=== PATIENT | male | born 1995 | race Caucasian/White ===

== ENCOUNTER → 2018-03-05 | Emergency (ER) | payer OTHER ==
[~2018-03-05] VITALS: Ht 172.7 cm; Wt 72.6 kg
[~2018-03-05] MED LIST: KETO10TA2 PO
== END | disposition home or self-care (01) ==
LOC: ER 00:05 → EDBD 00:06 → ER 00:06
DX: R10.32 Left lower quadrant pain (principal)

== ENCOUNTER 2021-04-02 15:49 | Inpatient (IN) | payer OTHER ==
[~2021-04-02] VITALS: Ht 175.3 cm; Wt 72.6 kg
--- NOTE | 2021-04-02 16:08 | NUR ---
PACIENTE ALERTA Y ORIENTADO POR ALEXANDRA. REFIERE DOLOR ABDOMINAL DESDE LAS 8:30AM QUE AHORA SE REFLEJA MAYORMENTE EN EL LADO DERECHO.
== END 2021-04-04 13:06 | disposition home or self-care (01) | DRG 343 ==
LOC: ER 15:49 → SEC-K 22:38 → SURH 22:38
PROVIDERS: ADMIT Surgery; ATTEND Surgery
PROC: BW2110Z Computerized Tomography (CT Scan) of Abdomen and Pelvis using Low Osmolar Contrast, Unenhanced and Enhanced (ICD-10-PCS; 2021-04-02)
PROC: 0DTJ4ZZ Resection of Appendix, Percutaneous Endoscopic Approach (ICD-10-PCS; principal; 2021-04-03 05:00)
DX: K35.890 Other acute appendicitis without perforation or gangrene (principal); Z20.822 Contact with and (suspected) exposure to COVID-19

== ENCOUNTER 2023-07-20 12:42 | Outpatient (CLI) | payer OTHER | END 2023-07-20 12:53 | disposition home or self-care (01) | LOC: RAD 12:42 | DX: M99.01 Segmental and somatic dysfunction of cervical region (principal); M54.2 Cervicalgia; M99.03 Segmental and somatic dysfunction of lumbar region; M54.50 Low back pain, unspecified ==

== ENCOUNTER 2025-09-20 18:01 | Emergency (ER) | payer OTHER ==
[~2025-09-20] VITALS: Ht 172.7 cm; Wt 89.4 kg
[2025-09-20 18:50] VITALS: BP 137/80; O2SAT 97
[2025-09-20] MEDS ORDERED: CEFTRIAXONE SODIUM 1,000 MG VIAL IV ONE (19:00)
[2025-09-20] MEDS ORDERED: DEXAMETHASONE SODIUM PHOSP/PF 10 MG/ML VIAL IV ONE (19:00)
[2025-09-20] MEDS ORDERED: KETOROLAC TROMETHAMINE 30 MG VIAL IV ONE (19:00)
[2025-09-20] MEDS ORDERED: DEXAMETHASONE SODIUM PHOSPHATE 4 MG/ML VIAL ONE (21:15)
[2025-09-20] MEDS ORDERED: KETOROLAC TROMETHAMINE 30 MG VIAL ONE (21:15)
[2025-09-20] MEDS ORDERED: CEFTRIAXONE SODIUM 1,000 MG VIAL ONE (21:16)
[2025-09-20 21:47] LABS: BASO % 0.7 % (0.1-1.2); EOS # 0.18 (0.04-0.54); EOS % 1.7 % (0.7-7.0); LYMPH # 1.82 (1.18-3.74); LYMPH % 16.9 % (19.3-53.1); MEAN PLATELET VOLUME 9.30 fl (9.4-12.4); MONO # 0.94 (0.24-0.82); MONO % 8.8 % (4.7-12.5); NEUT # 7.71 (1.56-6.13); NEUT % 71.7 % (34.0-71.1); RED CELL DISTRIBUTION WIDTH 13.8 % (11.6-14.4)
[2025-09-20 22:22] LABS: BUN CREA RATIO 14.0 (7.0-25.0); CREATININE SERUM 1.03 mg/dL (0.70-1.30); GFR 85.38; GLUCOSE FASTING 89.0 mg/dL (65-100); OSMOLALITY SERUM 276.0 MOSM/KG (275-295)
== END 2025-09-21 02:02 | disposition home or self-care (01) ==
LOC: ER 18:01
PROVIDERS: General Practice
DX: S00.522A Blister (nonthermal) of oral cavity, initial encounter (principal)